=== PATIENT | female | born 2000 | race Two or more races ===

== ENCOUNTER 2020-04-23 22:02 | Emergency (ER) | payer BC, OTHER ==
[~2020-04-23] VITALS: Ht 162.6 cm; Wt 72.6 kg
[2020-04-23 22:27] VITALS: BP 120/72
== END 2020-04-24 01:52 | disposition left against medical advice (07) ==
LOC: ER 22:04
DX: M54.5 Low back pain (principal); Z53.21 Procedure and treatment not carried out due to patient leaving prior to being seen by health care provider